=== PATIENT | male | born 1950 | race Caucasian/White ===

== ENCOUNTER 2016-12-18 15:54 | Emergency (ER) | payer OTHER, MEDICARE ==
[2016-12-18 16:07] VITALS: RESP 16
--- NOTE | 2016-12-18 16:16 | CPEKG ---
Heart Rate: 74 RR Interval: 811 P-R Interval: 176 QRSD Interval: 88 QT Interval: 368 QTC Interval: 409 P [place]: 23 QRS [place]: 21 T Wave [place]: 54 EKG Severity - NORMAL ECG - EKG Impression: SINUS RHYTHM Electronically Signed By: Tabatha Angela 18-Dec-2016 23:17:54
--- NOTE | 2016-12-18 16:32 | EDPHY ---
H & P Time Seen by Provider: 12/18/16 16:09 HPI/ROS: CHIEF COMPLAINT: Left back, left arm pain HISTORY OF PRESENT ILLNESS: Patient is a 58-year-old male with hypertension high cholesterol who presents emergency department with left-sided back pain. The patient states he developed left pain surrounding his scapula approximately 3 weeks ago. This is worse with movement. His pain is constant. For the past week he has noticed pain also extending down his left arm. Again, this is worse with movement. He denies any shortness of breath or chest pain. No cough or fever. No abdominal pain. No nausea or vomiting. No diaphoresis. No rash. No trauma or injury. REVIEW OF SYSTEMS: My complete review of systems is negative except as mentioned in the HPI. Past Medical/Surgical History: Includes high cholesterol, hypertension," metabolic syndrome", gout, bronchitis Smoking Status: Former smoker Physical Exam: Vitals noted GENERAL: Well-appearing, in no acute distress, alert. HEENT: Eyes normal to inspection, normal pharynx, no signs of dehydration. NECK: No thyromegaly, no lymphadenopathy, supple. No tenderness palpation RESPIRATORY: Clear to auscultation bilaterally, no rales, rhonchi or wheezing. CVS: Regular rate and rhythm, no rubs, murmurs, or gallops. Chest wall: No tenderness palpation. No rash ABDOMEN: Soft, nontender, nondistended, no organomegaly. BACK: Normal to inspection. No rash. The patient has mild tenderness palpation laterally to his thoracic spine. SKIN: Normal color, no rash, warm, dry. No pallor. EXTREMITIES: No pedal edema, no joint swelling. Patient's left shoulder and arm appear normal. No swelling. Neurovascular intact distally. Patient does have worsening discomfort with elevation of his humerus. This replicates his pain. NEURO/PSYCH: Alert and oriented x3, normal mood and affect, normal motor sensory exam. No obvious cranial nerve deficit. Constitutional: Initial Vital Signs Temperature (C) 36.8 C 12/18/16 16:00 Heart Rate 86 12/18/16 16:00 Respiratory Rate 16 12/18/16 16:00 Blood Pressure 157/109 H 12/18/16 16:00 O2 Sat (%) 95 12/18/16 16:00 O2 Delivery Mode Room Air Allergies/Adverse Reactions: Penicillins Allergy (Intermediate, Verified 12/18/16 16:02) Hives Home Medications: Medication Instructions Recorded Allopurinol [Allopurinol 300 MG 300 mg PO DAILY 12/18/16 (RX)] Amlodipine Besylate [Norvasc] 5 mg PO 12/18/16 Cyclobenzaprine [Flexeril] 10 mg PO TID #15 tab 12/18/16 FENOFIBRATE 160 mg PO 12/18/16 Fluticasone Hfa 220 Mcg [Flovent 1 puffs IH BID 12/18/16 220 MCG Hfa MDI (*)] Hydrocodone/APAP 5/325 [Ebro 1 - 2 tab PO Q4 #13 tab 12/18/16 5/325 (RX)] Rosuvastatin Calcium [Crestor 40mg 40 mg PO 12/18/16 (*)] Medical Decision Making ED Course/Re-evaluation: In the emergency department I discussed possible etiologies with the patient. His symptoms sound musculoskeletal. However because he has left-sided back pain radiating to his left arm he will have a cardiac workup. EKG, laboratory studies and chest x-ray were ordered. EKG shows normal sinus rhythm, normal rate, normal axis, normal intervals. There are no ST or T-wave abnormalities. EKG is normal as interpreted by me. Patient's laboratory studies showed a normal troponin. Mildly elevated white count. creatinine is 1.4. Chest x-ray: No acute disease noted. I discussed the results with the patient. I answered all her questions. He will be treated with pain medicine Flexeril for his back pain. He was given follow-up with Dr. Cohen. He has had previous procedures from Dr. Cohen. Differential Diagnosis: My differential includes but is not limited to ACS, acute VT, dissection, aneurysm, pneumonia, pneumothorax, musculoskeletal strain, disc herniation, rotator cuff injury - Data Points Laboratory Results: Laboratory Results 12/18/16 16:52 12/18/16 16:52 12/18/16 12/18/16 16:52 16:52 WBC 10.46 10^3/uL H 10^3/uL (3.80-9.50) RBC 5.51 10^6/uL 10^6/uL (4.40-6.38) Hgb 17.6 g/dL H g/dL (13.7-17.5) Hct 50.0 % % (40.0-51.0) MCV 90.7 fL fL (81.5-99.8) MCH 31.9 pg pg (27.9-34.1) MCHC 35.2 g/dL g/dL (32.4-36.7) RDW 13.6 % % (11.5-15.2) Plt Count 243 10^3/uL 10^3/uL (150-400) MPV 10.0 fL fL (8.7-11.7) Neut % (Auto) 62.0 % % (39.3-74.2) Lymph % (Auto) 24.4 % % (15.0-45.0) Armstrong % (Auto) 9.2 % % (4.5-13.0) Eos % (Auto) 2.3 % % (0.6-7.6) Baso % (Auto) 1.1 % % (0.3-1.7) Nucleat RBC Rel Count 0.0 % % (0.0-0.2) Absolute Neuts (auto) 6.49 10^3/uL 10^3/uL (1.70-6.50) Absolute Lymphs (auto) 2.55 10^3/uL 10^3/uL (1.00-3.00) Absolute Monos (auto) 0.96 10^3/uL H 10^3/uL (0.30-0.80) Absolute Eos (auto) 0.24 10^3/uL 10^3/uL (0.03-0.40) Absolute Basos (auto) 0.12 10^3/uL H 10^3/uL (0.02-0.10) Absolute Nucleated RBC 0.00 10^3/uL 10^3/uL (0-0.01) Immature Gran % 1.0 % % (0.0-1.1) Immature Gran # 0.10 10^3/uL 10^3/uL (0.00-0.10) Sodium 138 mEq/L mEq/L (134-144) Potassium 4.4 mEq/L mEq/L (3.5-5.2) Chloride 103 mEq/L mEq/L (97-110) Carbon Dioxide 21 mEq/l L mEq/l (22-31) Anion Gap 14 mEq/L mEq/L (8-16) BUN 29 mg/dL H mg/dL (7-23) Creatinine 1.4 mg/dL H mg/dL (0.7-1.3) Estimated GFR 50 Glucose 112 mg/dL H mg/dL (70-100) Calcium 10.3 mg/dL mg/dL (8.5-10.4) Troponin I < 0.012 ng/mL ng/mL (0-0.034) Departure - Departure Disposition: Home, Routine, Self-Care Clinical Impression: Acute thoracic back pain Qualifiers: Back pain laterality: left Qualified Code(s): M54.6 - Pain in thoracic spine Condition: Good Instructions: Back Pain (ED) Additional Instructions: Return with increasing pain, shortness of breath, numbness, weakness or any other concerns. Referrals: Pari Ortiz MD [Primary Care Provider] - 5-7 days, call for appt. Shanae Cohen MD [Medical Doctor] - 5-7 days, call for appt. Prescriptions: Cyclobenzaprine [Flexeril] 10 mg PO TID #15 tab Hydrocodone/APAP 5/325 [Ebro 5/325 (RX)] 1 - 2 tab PO Q4 #13 tab
[2016-12-18 17:12] LABS: ADD DIFF? NO; ADD MORPH? NO; ADD SCAN? NO; ATYPICAL LYMPHOCYTE FLAG 0 (0-99); FRAGMENT RBC FLAG 0 (0-99); HEMOGLOBIN 17.6 g/dL (13.7-17.5); LEFT SHIFT FLG 0 (0-99); LIPEMIA HEMOLYSIS FLAG 90 (0-99); MEAN CELL HEMOGLOBIN 31.9 pg (27.9-34.1); MEAN CELL HEMOGLOBIN CONCENTR. 35.2 g/dL (32.4-36.7); MEAN CELL VOLUME 90.7 fL (81.5-99.8); PLATELET CLUMPS FLAG 10 (0-99); PLATELET COUNT 243 10^3/uL (150-400); RED BLOOD CELL COUNT 5.51 10^6/uL (4.40-6.38); RED CELL DISTRIBUTION WIDTH 13.6 % (11.5-15.2)
[2016-12-18 17:21] LABS: ANION GAP 14 mEq/L (8-16); CALCIUM 10.3 mg/dL (8.5-10.4); CARBON DIOXIDE 21 mEq/l (22-31); CHLORIDE 103 mEq/L (97-110); CREATININE 1.4 mg/dL (0.7-1.3); GLOMERULAR FILTRATION RATE 50; GLUCOSE 112 mg/dL (70-100); POTASSIUM 4.4 mEq/L (3.5-5.2); SODIUM 138 mEq/L (134-144)
[2016-12-18 17:32] LABS: TROPONIN I < 0.012 ng/mL (0-0.034)
[2016-12-18 18:06] VITALS: BP 143/91; PULSE 67; TEMP 98.1; O2SAT 94
== END 2016-12-18 18:06 | disposition home or self-care (01) ==
DX: M54.6 Pain in thoracic spine (principal); I10 Essential (primary) hypertension; Z87.891 Personal history of nicotine dependence

== ENCOUNTER → 2016-12-21 | Outpatient (CLI) | payer OTHER, MEDICARE | LOC: FIMAGING 11:44 | PROVIDERS: ATTEND Orthopaedic Surgery Orthopaedic Surgery of the Spine | DX: M47.892 Other spondylosis, cervical region (principal); M46.92 Unspecified inflammatory spondylopathy, cervical region; M43.12 Spondylolisthesis, cervical region ==

== ENCOUNTER 2017-01-12 11:50 | Inpatient (IN) | payer OTHER, MEDICARE ==
--- NOTE | 2017-01-11 21:58 | GHP ---
[f rep st] PREOP HISTORY AND PHYSICAL DATE OF ADMISSION: 01/12/2017 HISTORY: The patient is a pleasant 66-year-old left-hand dominant gentleman well known to my practi theron. Approximately 12 years ago, he underwent a left L4-5 microdiskectomy through a Kian approach by myself, and has done exceedingly well. However, more recently, the patient has had a rather rapi d onset of left scapular and left upper extremity pain. There was no history of trauma. The patien t did go to the emergency room, and states he had a full cardiac workup to ensure this was not a car diac event, which it turned out to be negative. The patient does have tingling and numbness in the left upper extremity, and pain that radiates down the triceps. On a 1-10 scale, his daily pain is a n 8 and is very severe. He denies any loss of bowel or bladder control, but he does have loss of ba kunal and loss of dexterity as well as loss of strength in the left upper extremity. His symptoms b mary approximately five weeks ago. His MRI of the cervical spine showed myelomalacia at C4-5 with p rofound spinal stenosis at that level and mild stenosis at C5-6 and severe stenosis at C6-7. Due to the myelomalacia and signs of myelopathy, surgery was recommended on a fairly urgent basis. SOCIAL HISTORY: Negative for tobacco. Negative for alcohol. FAMILY HISTORY: Significant for cancer, heart disease and diabetes mellitus. PAST MEDICAL HISTORY: Hypercholesterolemia, metabolic syndrome, sleep apnea, hypertension, and gout . PAST SURGICAL HISTORY: Significant for the aforementioned left L4-5 decompression by myself. MEDICATION ALLERGIES: Penicillin. MEDICATIONS: Benazepril, amlodipine, montelukast, Crestor, allopurinol, Flovent, fenofibrate. The patient has stopped his aspirin. He does take Percocet occasionally. REVIEW OF SYSTEMS: A 10-point review is negative for any pertinent positives. PHYSICAL EXAM: GENERAL/VITAL SIGNS: Patient is 5 feet 8 inches tall and weighs 200 pounds. Blood pressure is 132/88. Patient is alert and oriented x3. NEUROLOGIC: Shows cervical range of motion diminished in extension. His strength of bilateral upper extremities is 5/5 throughout with the exc eption of the left triceps is 4/5, and sensation is diminished in the left long finger and ring fing er. He has a very positive left Spurling test. He is tender to palpation in the paraspinal cervica l muscles on the left. Gait is slightly imbalanced. IMAGING: MRI shows profound spinal stenosis and myelomalacia at C4-5, mild stenosis C5-6 and severe stenosis C6-7. IMPRESSION: 1. Myelomalacia at C4-5. 2. Myelopathy. 3. Left C7 radiculopathy. 4. Multiple levels of stenosis C4 to C7. PLAN: The patient will undergo a C4 to C7 anterior diskectomy, fusion with instrumentation, for the myelopathy and myelomalacia due to significant stenosis. Potential risks, benefits, possible compl ications have been thoroughly discussed with the patient including, but not limited to dural tear wi th CSF leak, meningitis, nerve root injury, partial or complete paralysis, breakdown or junctional b reakdown of adjacent levels, nonunion, breakage or pullout of internal fixation, dysphagia, aphonia, Rommel syndrome, injury to the vertebral arteries and the carotid arteries, as well as DVT, PE, pne umonia, stroke, heart attack, hemorrhage, blindness, and . The patient will be n.p.o. after mi dnight tonight. All of his questions were answered thoroughly. I expect a 1 to 2-night hospital [facility] for this patient. /[id number]/MODL
[~2017-01-12 11:50] MED LIST: VANCOMYCIN 1.25 GM in D5W 250 ML IV ONE
[2017-01-12] MEDS ORDERED: LR 1,000 ML IV ONE (12:07)
[2017-01-12] MEDS ORDERED: LIDOCAINE 1% 5 ML SDV ID PRN (12:07)
[2017-01-12] MEDS ORDERED: THROMBIN (BOVINE) 20,000 UNIT VIAL TP ONE (12:15)
[2017-01-12] MEDS ORDERED: AVITENE POWDER 1 GM JAR TP ONE (12:15)
[2017-01-12] MEDS ORDERED: BACITRACIN 50,000 UNITS/10 ML SYR IRR ONE ×2 (12:16→14:09)
[2017-01-12] MEDS ORDERED: LIDOCAINE 1% 2 ML INJ ONE (12:20)
[2017-01-12 13:02] LABS: INR 0.99 (0.83-1.16)
[2017-01-12 13:03] LABS: APTT 26.2 SEC (23.0-38.0)
[2017-01-12] MEDS ORDERED: PROPOFOL/EMULSION 500 MG/50 ML BOTTLE IV ONE ×4 (13:33→17:54)
[2017-01-12] MEDS ORDERED: fentaNYL 250 MCG/5 ML INJ ONE ×2 (13:33→15:11)
[2017-01-12] MEDS ORDERED: DEXAMETHASONE 4 MG/ML VIAL ONE ×2 (13:35→15:55)
[2017-01-12] MEDS ORDERED: SUCCINYLCHOLINE CHLORIDE*ANESTHESIA ONLY*200 MG/10 ML SYR IVP ONE (13:35)
[2017-01-12] MEDS ORDERED: ROCURONIUM 50 MG/5 ML VIAL ONE (13:35)
[2017-01-12] MEDS ORDERED: MIDAZOLAM 2 MG/2 ML VIAL ONE (14:00)
[2017-01-12] MEDS ORDERED: PETROLAT,WHT/MIN OIL/SOD CHL 3.5 GM OPHT.OINT ONE (15:22)
[2017-01-12] MEDS ORDERED: fentaNYL 100 MCG/2 ML INJ ONE ×3 (16:34→20:27)
[2017-01-12] MEDS ORDERED: ONDANSETRON 4 MG/2 ML VIAL ONE ×3 (19:09→20:28)
[2017-01-12] MEDS ORDERED: ONDANSETRON DISINTEGRATING 4 MG TAB PO PRN (19:22)
[2017-01-12] MEDS ORDERED: BISACODYL 10 MG SUPP PR PRN (19:22)
[2017-01-12] MEDS ORDERED: MAGNESIUM HYDROXIDE 30 ML UDCUP PO PRN (19:22)
[2017-01-12] MEDS ORDERED: TEMAZEPAM 15 MG CAP PO PRN (19:22)
[2017-01-12] MEDS ORDERED: ACETAMINOPHEN 325 MG TAB PO PRN (19:22)
[2017-01-12] MEDS ORDERED: POLYETHYLENE GLYCOL 3350 17 GM PKT PO PRN (19:22)
[2017-01-12] MEDS ORDERED: diphenhydrAMINE 25 MG CAP PO PRN ×2 (19:22)
[2017-01-12] MEDS ORDERED: PROCHLORPERAZINE MALEATE 10 MG TAB PO PRN (19:22)
[2017-01-12] MEDS ORDERED: HYDROCODONE/APAP 10/325 TAB PO PRN (19:22)
[2017-01-12] MEDS ORDERED: DIAZEPAM 10 MG/2 ML SYR IVP PRN (19:22)
[2017-01-12] MEDS ORDERED: LACTULOSE 20 GM/30 ML UDCUP PO PRN (19:22)
[2017-01-12] MEDS ORDERED: ONDANSETRON 4 MG/2 ML VIAL IVP PRN (19:22)
--- NOTE | 2017-01-12 19:22 | POSTOPPROG ---
Post Op Note Date of Operation: 01/12/17 Surgeon: Shanae Cohen Energy Auditor: Florencia Rodriges SA Anesthesiologist: Aminta Christianson MD Anesthesia: GET(General Endotracheal) Pre-op Diagnosis: Myelopathy, stenosis C4-7, Left C7 radiculopathy Post-op Diagnosis: same. Indication: Left arm pain, myelopathy Procedure: C4-7 ACDF/I Findings: Profpound stenosis C4-5 and moderate C6-7, mild C5-6. Inf/Abcess present in the surg proc area at time of surgery?: No Depth: Deep Incisional (Fascial) EBL: 100 cc Complications: None. No changes in neuro monitoring.
[2017-01-12] MEDS ORDERED: D5W 1/2 NS W/ 20 KCl/L 1,000 ML IV SCH (19:30)
[2017-01-12] MEDS ORDERED: LABETALOL HCL 50 MG/10 ML SYR ONE (19:44)
[2017-01-12] MEDS ORDERED: FLUTICASONE HFA 220 MCG MDI IH SCH (21:00)
[2017-01-12] MEDS: FLUTICASONE HFA 110 MCG MDI IH SCH (22:00)
[2017-01-12] MEDS: morphINE SR 15 MG TAB PO SCH (22:22)
[2017-01-12] MEDS: SENNOSIDES/DOCUSATE SODIUM TAB PO SCH (22:22)
[2017-01-12] MEDS: OXYCODONE/APAP 5/325 TAB PO PRN (23:32)
[2017-01-13] MEDS: DIAZEPAM 5 MG TAB PO PRN ×3 (01:22→18:01)
[2017-01-13] MEDS ORDERED: VANCOMYCIN 1.5 GM in D5W 250 ML IV SCH (01:45)
[2017-01-13] MEDS: OXYCODONE/APAP 5/325 TAB PO PRN ×3 (03:42→18:02)
[2017-01-13] MEDS: morphINE SR 15 MG TAB PO SCH ×2 (08:24→20:05)
[2017-01-13] MEDS: FLUTICASONE HFA 110 MCG MDI IH SCH ×2 (08:52→22:22)
[2017-01-13] MEDS: ROSUVASTATIN CALCIUM 10 MG TAB PO SCH (09:36)
[2017-01-13] MEDS: FENOFIBRATE 48 MG TAB PO SCH (09:38)
[2017-01-13] MEDS: BENAZEPRIL HCL 10 MG TAB PO SCH (09:39)
[2017-01-13] MEDS: SENNOSIDES/DOCUSATE SODIUM TAB PO SCH ×2 (09:39→20:05)
[2017-01-13] MEDS: amLODIPine BESYLATE 5 MG TAB PO SCH (09:40)
[2017-01-13] MEDS: MONTELUKAST SODIUM 10 MG TAB PO SCH (09:40)
[2017-01-13] MEDS: ALLOPURINOL 300 MG TAB PO SCH (09:41)
[2017-01-13] MEDS: HYDROmorphONE/DILAUDID 1 MG/ML SYR IVP PRN (15:08)
--- NOTE | 2017-01-13 17:45 | SOAPPROG ---
SOAP Progress Note Assessment/Plan: Assessment: s/p C4-7 ACDF/I for severe stenosis, and myelopathy. Pt having significant post op pain and some dysphagia and has not been able to urinate yet. Plan: Cont pain management. I encouraged pt to take valium as needed. Cont PT and OT (shower in a.m with collar off) If no void, pt will need mccord and f/u appt with Dr. Lemus (pts urologist). 01/13/17 17:41 Subjective: Pt complains of severe pain episode with eating chicken salad/and dyspagia. Unable to urinate. Straight cath'd 3x so far. Objective: Vital Signs Temp Pulse Resp BP Pulse Ox 36.9 C 82 16 125/84 H 97 01/13/17 15:36 01/13/17 15:36 01/13/17 15:36 01/13/17 15:36 01/13/17 15:36 01/12/17 01/13/17 01/14/17 05:59 05:59 05:59 Intake Total 3200 250 Output Total 2100 1250 Balance 1100 -1000 PT 13.0 SEC (12.0-15.0) 01/12/17 12:30 INR 0.99 (0.83-1.16) 01/12/17 12:30 Anterior c-spine with swelling, but skin creases still visible. Trachea midline. BUE motor 5/5. NVI. ICD10 Worksheet Patient Problems: Problems Problem Status Onset Myelopathy Acute - ICD10 Problem Qualifiers (1) Myelopathy
[2017-01-14] MEDS: OXYCODONE/APAP 5/325 TAB PO PRN ×4 (01:31→21:07)
[2017-01-14] MEDS: DIAZEPAM 5 MG TAB PO PRN ×3 (01:32→15:57)
[2017-01-14] MEDS: SENNOSIDES/DOCUSATE SODIUM TAB PO SCH ×2 (08:11→21:06)
[2017-01-14] MEDS: ROSUVASTATIN CALCIUM 10 MG TAB PO SCH (08:12)
[2017-01-14] MEDS: morphINE SR 15 MG TAB PO SCH ×2 (08:13→21:06)
[2017-01-14] MEDS: MONTELUKAST SODIUM 10 MG TAB PO SCH (08:13)
[2017-01-14] MEDS: ALLOPURINOL 300 MG TAB PO SCH (08:13)
[2017-01-14] MEDS: amLODIPine BESYLATE 5 MG TAB PO SCH (08:14)
[2017-01-14] MEDS: BENAZEPRIL HCL 10 MG TAB PO SCH (08:14)
[2017-01-14] MEDS: FENOFIBRATE 48 MG TAB PO SCH (08:15)
[2017-01-14] MEDS: FLUTICASONE HFA 110 MCG MDI IH SCH ×3 (09:12→22:14)
[2017-01-14] MEDS: ALBUTEROL 60 PUFFS/8 GM MDI IH PRN (10:04)
[2017-01-14] MEDS: HYDROmorphONE/DILAUDID 1 MG/ML SYR IVP PRN ×2 (12:05→19:24)
--- NOTE | 2017-01-14 12:24 | CPEKG ---
Heart Rate: 89 RR Interval: 674 P-R Interval: 148 QRSD Interval: 90 QT Interval: 344 QTC Interval: 419 P [place]: 54 QRS [place]: 61 T Wave [place]: 67 EKG Severity - NORMAL ECG - EKG Impression: SINUS RHYTHM Electronically Signed By: Tae Bourne 14-Jan-2017 18:36:45
[2017-01-14 13:27] LABS: CREATINE KINASE-MB FRACTION 1.36 ng/mL (0-3.19); TROPONIN I < 0.012 ng/mL (0-0.034)
--- NOTE | 2017-01-14 15:35 | SOAPPROG ---
SOAP Progress Note Assessment/Plan: Assessment: s/p C4-7 ACDF/I for severe stenosis, and myelopathy. Pt having significant post op pain and some dysphagia and has not been able to urinate yet. Plan: Cont pain management. I encouraged pt to take valium as needed. Cont PT and OT (shower in a.m with collar off) If no void, pt will need mccord and f/u appt with Dr. Lemus (pts urologist). 01/13/17 17:41 01/14/17 15:32 post op day 2, s/p C4-7 ACDF/I for cervical myelopathy and severe LUE radiculopathy. Pt had episode of chest pressure, SOB, dysphagia today. Had cardiac protocol w/u. Negative so far per hospitalist. Plan: cont close airway observation, telemetry, and pain control. Subjective: Pt describes episode of diaphoresis, SOB, chest pressure, dysphagia today. Seen again by speech path. Objective: Vital Signs Temp Pulse Resp BP Pulse Ox 37.0 C 97 18 127/78 H 96 01/14/17 11:05 01/14/17 11:05 01/14/17 11:05 01/14/17 11:05 01/14/17 11:05 01/13/17 01/14/17 01/15/17 05:59 05:59 05:59 Intake Total 3200 750 Output Total 2100 3050 Balance 1100 -2300 PT 13.0 SEC (12.0-15.0) 01/12/17 12:30 INR 0.99 (0.83-1.16) 01/12/17 12:30 BUE and BLE motor 5/5. NVI. Light touch in tact. Wound clean and dry. Pulm and cardiac per hospitalist. ICD10 Worksheet Patient Problems: Problems Problem Status Onset Myelopathy Acute - ICD10 Problem Qualifiers (1) Myelopathy
[2017-01-14] MEDS: IPRATROPIUM/ALBUTEROL 3 ML DEYVIAL IH SCH ×3 (18:11→21:16)
--- NOTE | 2017-01-14 18:44 | GCON ---
[f rep st] CONSULTATION REFERRING PHYSICIAN: Dr. Jesu MD REASON FOR CONSULTATION: Evaluation for increased coughing, chest pain, with shortness of breath. HISTORY OF PRESENT ILLNESS: The patient is a 66-year-old gentleman who has a past medical history of high cholesterol, metabolic syndrome, hypertension, sleep apnea, and gout who is postop day #2 for a C4-7 ACDF/I for treatment of left arm pain and myelopathy. The hospitalist team was asked to evaluate the patient because he had an episode of chest tightness with shortness of breath. In talking with the patient, he describes that his chest became tight, but he felt this was more bronchial. He has seen Dr. Jordan in the past for chronic bronchitis, and has been treated with Flovent b.i.d.and ProAir. He describes falling asleep. All of a sudden, he had increased pain in his shoulder and triceps, which woke him up, and then he started having complaints of chest tightness with increased mucus production. He had a fever as well as chills, and had increased sweating. He had no nausea, no vomiting, no radiation of pain. He has been having more trouble using his ProAir and taking deep breaths because of having a collar on his neck area. He uses this at home for his bronchial symptoms. During my interview, he denies any further episodes of shortness of breath, chest pain. His pain is well controlled with IV Dilaudid. PAST MEDICAL HISTORY: 1. Hypercholesterolemia. 2. Sleep apnea. 3. Hypertension. 4. Gout. 5. Metabolic syndrome. PAST SURGICAL HISTORY: 1. Laminectomy approximately [address] Cohen. 2. Green laser therapy for his prostate with Dr. Lemus. 3. Recent cervical spine surgery. SOCIAL HISTORY: He does not smoke. He does not drink alcohol. He is currently not in a relationship. He has no children. He works in the [employer] business. FAMILY HISTORY: His father was murdered at age 38, and his mom from complications of aspiration at age 91. ALLERGIES: Penicillin causes hives. HOME MEDICATIONS: Include ProAir 1-2 puffs q.4 hours p.r.n., Flovent 1 puff inhalation b.i.d., Neurontin 300 mg p.o. b.i.d., Percocet 1 tab q.5 hours p.r.n. , Norvasc 5 mg daily, Crestor 5 mg daily, Fenofibrate 54 mg daily, allopurinol 300 mg daily, Singulair 10 mg daily, and Lotensin 10 mg daily. REVIEW OF SYSTEMS: A 10-point review of system was performed and was negative other than pertinent positives in the HPI and past medical history. PHYSICAL EXAM: GENERAL: The patient is a 66-year-old male, who does not appear to be in any type of acute distress. VITAL SIGNS: Blood pressure is 127 /78, heart rate is 97, respiratory rate is 18, O2 sats on room air 96%, temperature is 37 degrees Celsius. EYES: Pupils are equal and reactive. EOMs are intact. ENT: He has normal ears, hearing is intact. Normal lips and teeth. Oral airways intact. NECK: He has a soft cervical collar in place. CARDIOVASCULAR: He is in a regular rate and rhythm. No murmurs, rubs, or gallops noted, 2+ pedal pulses. CHEST/LUNGS: Normal respiratory effort. Clear without wheezing or rales. Diminished bibasilar. ABDOMEN: Large and round, nontender. SKIN: Without rash. It is also warm and dry. MUSCULOSKELETAL: Not evaluated. He appears to have overall good motor strength. PSYCHIATRIC: He is alert and oriented. Normal mood and affect. Normal judgment, insight, and memory. DATA REVIEWED: 1. Cardiac enzymes were checked. CPK is 136, CK-MB is 1.36 troponin is less than 0.012. 2. EKG was performed, which I evaluated, which shows a sinus rhythm. 3. Chest x-ray was performed, which showed findings consistent with airway disease. ASSESSMENT/PLAN: 1. Likely acute on chronic bronchitis. He was having difficulty using his ProAir and getting a deep breath with this. Will order him DuoNeb. During my evaluation, he is not hypoxic and not having any type of tachycardia. I suspect he has some congestion postop from the surgery. 2. Chest discomfort and difficulty with taking deep breaths. Troponin is negative. EKG shows nothing acute. Will place him on the equipment monitor phototypesetting. Serial troponin will be done. A CTA can be considered if he becomes hypoxic and/ or tachycardic. 3. Swallowing concerns. He was seen and evaluated by the speech therapist. He is on a dysphagia diet and recommended to eat small meals at a time. 4. Hypertension. Blood pressure is well controlled. 5. Hypercholesterolemia. Statin has been resumed. 6. Gout, on allopurinol. 7. Postop day #2 for recent cervical surgery. Overall, doing well. 8. Deep vein thrombosis prophylaxis per surgical team. Thank you for this consult. The hospitalist team will continue to follow along with the patient during his stay. /[id number]/MODL MTDD
[2017-01-14] MEDS: GABAPENTIN 300 MG CAP PO SCH (21:07)
[2017-01-15] MEDS: DIAZEPAM 5 MG TAB PO PRN ×3 (00:42→21:47)
[2017-01-15] MEDS: OXYCODONE/APAP 5/325 TAB PO PRN ×4 (03:00→23:22)
[2017-01-15] MEDS: HYDROmorphONE/DILAUDID 1 MG/ML SYR IVP PRN ×2 (03:02→10:22)
--- NOTE | 2017-01-15 04:44 | GOP ---
[f rep st] OPERATIVE REPORT DATE OF OPERATION: 01/12/2017 SURGEON: Shanae aNils MD NEUROSURGEON: Shanae Cohen MD. LINE INSPECTOR: Garrett Rodriges SA. ANESTHESIA: General endotracheal intubation. ANESTHESIOLOGIST: Dr. Jessica Christianson. PREOPERATIVE DIAGNOSIS: 1. Profound spinal stenosis C4-5, mild at C5-6, and moderate at C6-7. 2. Cervical myelopathy. 3. Left C7 radiculopathy with motor weakness. 4. Cervical myelomalacia C4-5. POSTOPERATIVE DIAGNOSIS: 1. Profound spinal stenosis C4-5, mild at C5-6, and moderate at C6-7. 2. Cervical myelopathy. 3. Left C7 radiculopathy with motor weakness. 4. Cervical myelomalacia C4-5. PROCEDURE PERFORMED: C4-5, C5-6, C6-7 anterior diskectomy, decompression, fusion with autograft and PEEK cages, and instrumentation. FINDINGS: Profound spinal stenosis C4-5, mild at C5-6, and moderate at C6-7 centrally, and foramina l stenosis at each level. There were also large anterior osteophytes C4-5, C6-7, and severe degener ative disk disease C4-5 and C6-7 and mild at C5-6. ESTIMATED BLOOD LOSS: Approximately 100 to 150 cc. INDICATIONS: Damian is a pleasant 66-year-old gentleman, well known to my practice. He has had a 3 t o 4-week history of severe neck pain and left upper extremity pain, tingling, numbness, loss of maldonado nce, and loss of dexterity. His symptoms began suddenly without preceding trauma. He states he was seen in the emergency room and a myocardial infarction was ruled out. On MRI he was found to have very profound spinal stenosis at C4-5 and spinal myelomalacia within the spinal cord at that level, in addition to stenosis at C5-6 and C6-7, and degenerative disk disease at all 3 levels. Surgery wa s recommended due to the myelopathy and the myelomalacia. No guarantees were given in regard to grace gical outcome. Potential risks, benefits, and possible complications have been thoroughly discussed including, but not limited to, dural tear with CSF leak, meningitis, nerve root injury, partial or complete paralysis, infection, Rommel syndrome, dysphagia, aphonia, nonunion, breakage or pullout of internal fixation, DVT, PE, pneumonia, stroke, heart attack, hemorrhage, blindness, and . DESCRIPTION OF PROCEDURE: After obtaining both written and verbal consent from the patient, he was brought to the operating room, where he underwent a general endotracheal intubation. Patient receiv ed IV antibiotics. Ignacio catheter was placed. Patient was positioned with his head and neck on the Wood headrest in mild extension. Intraoperative neuromonitoring including somatosensory-evoked potentials, motor-evoked potentials, and EMGs, including recurrent laryngeal nerve. EMGs were set up and performed. A lateral fluoroscopic x-ray was obtained of the cervical spine for localization. The cervical spine was then prepped and draped in the normal sterile fashion. A time out was perf ormed with the operating room team confirming patient's name, date of , planned surgical proced ure including levels, antibiotics given, and allergies to medications. After a sterile prep and drape, a left-sided paramedian longitudinal incision was made along the med ial border of the sternocleidomastoid muscle. The incision was brought down through skin subcutaneo us tissues and to the overlying platysma which were sharply incised with Bovie cautery. The deep ce rvical fascia was incised along the medial border of the sternocleidomastoid muscle. The carotid sh eath and its contents were identified and avoided. Dissection was carried out medial to those struc tures. The trachea and esophagus were gently retracted toward the midline. The pretracheal and pre vertebral fascia were bluntly dissected. 3 bent spinal needles were placed at disk spaces based on the anatomic landmarks and a lateral x-ray confirmed that these were indeed at the correct levels wh ich were C4-5, C5-6, and C6-7. The bent spinal needles were removed. The operating microscope was brought in for further visualization. The longus coli muscles were elevated using Bovie cautery. T he anterior longitudinal ligament was taken down as well using Bovie cautery from C4-C7. A Leonard p in was then placed at C4 and 1 at C5. The disk space was severely degenerative. Very minimal distr action was placed upon the Leonard pin set. Under the operating microscope, a 15 blade knife was use d to create an annulotomy at the disk and a pituitary rongeur was used to remove the anterior osteop hyte. As mentioned, the disk was severely degenerative. It was opened up using a 2-0 curved curett e and a pituitary rongeur. The posterior longitudinal ligament was severely hypertrophied and the patient had exceedingly profound spinal stenosis with the posterior disk as well as posteri or longitudinal ligaments creating an indentation upon the spinal cord. This was very slowly and gr adually, meticulously decompressed and all of the soft tissue structures were removed from causing a ny pressure on the spinal cord. Bilateral foraminotomies were also performed due to severe bilatera l foraminal stenosis. A 5 mm round and barrel shaped bur were then used to create parallel endplate s. Local bone graft was saved for the arthrodesis. Once the spinal cord was fully decompressed and the foramina were decompressed, trials were utilized to measure the space. This was from the Spina l Elements Sapphire Plate and Screw System. The most appropriate trial was a 9 mm lordotic trial. Therefore, a 16 x 13 x 9 mm lordosed Ti-Romero Crystal PEEK cage was prepared using autogenous bone gr aft as well as demineralized bone matrix. It was then tamped into position at C4-5. A micro nerve hook was used to palpate posterior to the bone graft and this ensured that there was no compressive pathology on the spinal cord. There were no changes in spinal cord monitoring. Then, the C5-6 level was addressed. This disk space was mildly degenerative. It was removed in the exact same fashion back to the posterior longitudinal ligament. This level showed mild plus spinal stenosis centrally and within the neural foramen. The entire posterior longitudinal ligament was c ompletely removed and foraminotomies were performed. Again, local autogenous bone graft was saved a nd parallel endplates were made using a 5 mm barrel shaped bur. The best fitting trial was a 9 mm t rial and, therefore, a 16 x 13 x 9 mm lordosed Ti-Romero Crystal PEEK cage was prepared using autogeno us bone graft and demineralized bone matrix. It was tamped into position and recessed about 1 mm. There was excellent contact on the vertebral endplates. Again, there were no changes in spinal cord monitoring. Then, the C6-7 level was addressed. This level showed severe degenerative disk disease with near rony ne-on-bone contact and a large anterior osteophyte that was removed with a 5 mm round bur. The enti re remnant of the disk was removed back to the posterior longitudinal ligament which again was hyper trophied and causing moderate central stenosis and severe bilateral foraminal stenosis. There was a lso a left-sided C6-7 disk herniation that was removed with a micropituitary. This space measured 8 mm and, at this level, a 14 x 11 x 8 mm lordosed Crystal PEEK Ti-Romero cage was tamped into position . There were no changes in spinal cord monitoring. A 5 mm round bur was then used to contour the a nterior aspect of the cervical spine to better accept a plate. Then, a Sapphire plate by [employer] measuring 51 mm in length was chosen and contoured into cervical lordosis mildly. It was plac ed under direct visualization using 4 mm x 14 mm self-drilling screws at all levels except for the l eft C4 was a 4.0 x 14 self-tapping screw. All screws were tightened down and torqued per the manugrace sandovalr's recommendation and had excellent purchase. There were no changes in spinal cord monitoring again. An AP and a lateral fluoroscopic x-ray were obtained using the intraoperative fluoroscope. This showed good position of internal fixation including PEEK cages from C4-C7. The wound was thor oughly explored and hemostasis was completely obtained. There was no need for a drain as the wound was completely dry prior to closure. The trachea and the esophagus were left intact in excellent co ndition as well as the carotid sheath and its contents and the spinal cord. The wound was closed us ing a 2-0 on dyed Vicryl in an interrupted fashion loosely in the platysma followed by a 4-0 Prolene in the subcuticular layer. Steri-Strips were applied. Sterile dressing was placed. Soft cervical collar was placed. Ignacio catheter was removed. Patient was extubated in the operating room, broug ht to the recovery room in satisfactory condition. COMPLICATIONS: None. IMPLANTS: Spinal Elements Sapphire plate and Crystal PEEK Ti-Romero cages. COMPLICATIONS: No changes in spinal cord monitoring. POSTOPERATIVE PLAN: Close neurologic observation, close airway observation, PT/OT and speech pathol ogy, as well as pain control. /[id number]/MODL
[2017-01-15 05:21] LABS: % IMMATURE GRANULYOCYTES 1.1 % (0.0-1.1); ABSOLUTE IMMATURE GRANULOCYTES 0.15 10^3/uL (0.00-0.10); ADD DIFF? NO; ADD MORPH? NO; ADD SCAN? NO; ATYPICAL LYMPHOCYTE FLAG 0 (0-99); FRAGMENT RBC FLAG 0 (0-99); HEMATOCRIT 45.6 % (40.0-51.0); HEMOGLOBIN 15.5 g/dL (13.7-17.5); LEFT SHIFT FLG 10 (0-99); LIPEMIA HEMOLYSIS FLAG 90 (0-99); MEAN CELL HEMOGLOBIN 31.9 pg (27.9-34.1); MEAN CELL VOLUME 93.8 fL (81.5-99.8); MEAN PLATELET VOLUME 10.4 fL (8.7-11.7); PLATELET CLUMPS FLAG 10 (0-99); PLATELET COUNT 193 10^3/uL (150-400); RED BLOOD CELL COUNT 4.86 10^6/uL (4.40-6.38); RED CELL DISTRIBUTION WIDTH 13.3 % (11.5-15.2)
[2017-01-15 05:57] LABS: ANION GAP 12 mEq/L (8-16); CALCIUM 10.1 mg/dL (8.5-10.4); CARBON DIOXIDE 21 mEq/l (22-31); CHLORIDE 103 mEq/L (97-110); CREATININE 1.7 mg/dL (0.7-1.3); GLOMERULAR FILTRATION RATE 40; GLUCOSE 136 mg/dL (70-100); POTASSIUM 4.4 mEq/L (3.5-5.2); SODIUM 136 mEq/L (134-144)
[2017-01-15] MEDS: IPRATROPIUM/ALBUTEROL 3 ML DEYVIAL IH SCH ×4 (08:32→21:54)
[2017-01-15] MEDS: ALLOPURINOL 300 MG TAB PO SCH (08:38)
[2017-01-15] MEDS: ROSUVASTATIN CALCIUM 10 MG TAB PO SCH (08:39)
[2017-01-15] MEDS: morphINE SR 15 MG TAB PO SCH ×2 (08:39→21:48)
[2017-01-15] MEDS: FENOFIBRATE 48 MG TAB PO SCH (08:39)
[2017-01-15] MEDS: MONTELUKAST SODIUM 10 MG TAB PO SCH (08:39)
[2017-01-15] MEDS: GABAPENTIN 300 MG CAP PO SCH ×3 (08:39→21:49)
[2017-01-15] MEDS: SENNOSIDES/DOCUSATE SODIUM TAB PO SCH ×2 (08:40→21:48)
[2017-01-15] MEDS: BENAZEPRIL HCL 10 MG TAB PO SCH (08:50)
[2017-01-15] MEDS: amLODIPine BESYLATE 5 MG TAB PO SCH (08:50)
[2017-01-15] MEDS: ALBUTEROL 60 PUFFS/8 GM MDI IH PRN (10:29)
[2017-01-15] MEDS: FLUTICASONE HFA 110 MCG MDI IH SCH ×2 (11:07→21:54)
[2017-01-15] MEDS: TAMSULOSIN HCL 0.4 MG CAP PO SCH (12:56)
--- NOTE | 2017-01-15 13:11 | HOSPPROG ---
Hospitalist Progress Note Assessment/Plan: 66 y/o male pod #3 cervical fusion #resolved chest pain with negative troponin suspect bronchitis -cont nebs -monitor off of abx #NIYAH likely multifactorial due to urinary retention/hypotension/nsaid use -monitor pvr and consider dc with mccord if continues to have problems with voiding -start flomax -hold bp meds for now -avoid nsaids #urinary retention with h/o BPH s/p green light laser turp -see above #Htn now with relative hypotension -hold norvasc/lisinopril #H/o Gout Dispo: may dc per Dr. Carrera if able to void. would recommending holding lisinopril on dc and arrange outpt followup with pcp to monitor renal function. If he is unable to void would recommend dc with mccord and urology followup. He has seen Dr. Lemus in the past Subjective: no chest pain. reports new problems with urinary retention. no fever or chills Objective: Vital Signs Temp Pulse Resp BP Pulse Ox 37.0 C 121 H 18 103/67 93 01/15/17 11:37 01/15/17 11:37 01/15/17 11:37 01/15/17 11:37 01/15/17 11:37 Laboratory Results 01/15/17 04:57 01/15/17 04:57 01/14/17 01/15/17 01/16/17 05:59 05:59 05:59 Intake Total 750 500 500 Output Total 3050 600 1300 Balance -2300 -100 -800 PT 13.0 SEC (12.0-15.0) 01/12/17 12:30 INR 0.99 (0.83-1.16) 01/12/17 12:30 Laboratory Tests 01/14/17 01/14/17 01/15/17 12:30 18:21 00:33 Troponin I < 0.012 < 0.012 < 0.012 - Physical Exam Constitutional: no apparent distress, appears nourished, not in pain Ears, Nose, Mouth, Throat: moist mucous membranes, hearing normal, ears appear normal, no oral mucosal ulcers Cardiovascular: regular rate and rhythym, no murmur, rub, or gallop Respiratory: no respiratory distress, no rales or rhonchi, clear to auscultation Gastrointestinal: normoactive bowel sounds, soft, non-tender abdomen, no palpable masses Genitourinary: no bladder fullness Skin: no rashes or abrasions, no fluctuance, no induration ICD10 Worksheet Patient Problems: Problems Problem Status Onset Myelopathy Acute
--- NOTE | 2017-01-15 13:57 | SOAPPROG ---
SOAP Progress Note Assessment/Plan: Assessment: s/p C4-7 ACDF/I for severe stenosis, and myelopathy. Pt having significant post op pain and some dysphagia and has not been able to urinate yet. Plan: Cont pain management. I encouraged pt to take valium as needed. Cont PT and OT (shower in a.m with collar off) If no void, pt will need mccord and f/u appt with Dr. Lemus (pts urologist). 01/13/17 17:41 01/14/17 15:32 post op day 2, s/p C4-7 ACDF/I for cervical myelopathy and severe LUE radiculopathy. Pt had episode of chest pressure, SOB, dysphagia today. Had cardiac protocol w/u. Negative so far per hospitalist. Plan: cont close airway observation, telemetry, and pain control. 01/15/17 13:53 post op day 3, s/p C4-7 ACDF/I. Pain still problematic for pt. Will start decadron. Will increase neurontin. Bronchitis per hospitalist. Bladder retention. Will need mccord in next 2-3 hrs if unable to urinate and f/ u with Dr. Lemus. Subjective: Pt complains of significant pain. Objective: Vital Signs Temp Pulse Resp BP Pulse Ox 37.0 C 121 H 18 103/67 93 01/15/17 11:37 01/15/17 11:37 01/15/17 11:37 01/15/17 11:37 01/15/17 11:37 Laboratory Results 01/15/17 04:57 01/15/17 04:57 01/14/17 01/15/17 01/16/17 05:59 05:59 05:59 Intake Total 750 500 500 Output Total 3050 600 1300 Balance -2300 -100 -800 PT 13.0 SEC (12.0-15.0) 01/12/17 12:30 INR 0.99 (0.83-1.16) 01/12/17 12:30 BUE motor 5/5. Anterior cervical wound clean. Minimal swelling. No Horners ICD10 Worksheet Patient Problems: Problems Problem Status Onset Myelopathy Acute - ICD10 Problem Qualifiers (1) Myelopathy
[2017-01-15] MEDS: DEXAMETHASONE 4 MG TAB PO SCH ×2 (16:36→23:22)
[2017-01-15] MEDS ORDERED: NS 1,000 ML IV ONE (17:50)
--- NOTE | 2017-01-15 23:57 | HOSPPROG ---
Hospitalist Progress Note Assessment/Plan: XC note: Alerted by RN that pt persistently tachycardic with HR 105-115 s/p 1 L NS. Reviewed chart. Pt is POD #3 from cervical fusion, medicine consulted yesterday due to complaints of chest discomfort and difficulty breathing thought to be secondary to bronchitis. He is not on pharmacologic DVT prophylaxis. His Cr is elevated at 1.7, +h/o urinary retention. Ignacio now in place. Currently he is comfortable, but requiring 4 LPM O2 on CPAP (?CONNER), was on room air earlier today and does not use O2 at home. Due to persistent tachycardia and increased O2 requirement in this post-op pt, will pursue PE w/u -D dimer obtained first as pt cannot have CTA with repeat Cr 1.8 -Elevated d dimer, LE duplex neg for DVT -Will obtain V/Q scan in am -Defer empiric anticoagulation for now as pt asymptomatic and HR has improved through the night, down to 80 at this time Objective: Vital Signs Temp Pulse Resp BP Pulse Ox 36.7 C 105 H 14 108/66 95 01/15/17 23:20 01/15/17 23:20 01/15/17 23:20 01/15/17 23:20 01/15/17 23:20 Laboratory Results 01/15/17 04:57 01/15/17 04:57 01/14/17 01/15/17 01/16/17 05:59 05:59 05:59 Intake Total 457 753 7076 Output Total 3050 600 1800 Balance -2300 -100 200 PT 13.0 SEC (12.0-15.0) 01/12/17 12:30 INR 0.99 (0.83-1.16) 01/12/17 12:30 ICD10 Worksheet Patient Problems: Problems Problem Status Onset Myelopathy Acute
[2017-01-16 00:38] LABS: ANION GAP 13 mEq/L (8-16); CALCIUM 9.9 mg/dL (8.5-10.4); CARBON DIOXIDE 20 mEq/l (22-31); CHLORIDE 102 mEq/L (97-110); CREATININE 1.8 mg/dL (0.7-1.3); GLOMERULAR FILTRATION RATE 38; GLUCOSE 217 mg/dL (70-100); POTASSIUM 4.6 mEq/L (3.5-5.2); SODIUM 135 mEq/L (134-144)
[2017-01-16] MEDS: OXYCODONE/APAP 5/325 TAB PO PRN ×3 (04:57→13:57)
[2017-01-16] MEDS: DEXAMETHASONE 4 MG TAB PO SCH ×2 (04:58→11:54)
[2017-01-16] MEDS: IPRATROPIUM/ALBUTEROL 3 ML DEYVIAL IH SCH ×4 (05:50→21:19)
[2017-01-16 05:52] LABS: ANION GAP 11 mEq/L (8-16); CALCIUM 10.1 mg/dL (8.5-10.4); CARBON DIOXIDE 21 mEq/l (22-31); CHLORIDE 103 mEq/L (97-110); CREATININE 1.7 mg/dL (0.7-1.3); GLOMERULAR FILTRATION RATE 40; GLUCOSE 152 mg/dL (70-100); SODIUM 135 mEq/L (134-144)
[2017-01-16] MEDS: ALLOPURINOL 300 MG TAB PO SCH (08:38)
[2017-01-16] MEDS: SENNOSIDES/DOCUSATE SODIUM TAB PO SCH ×2 (08:39→22:07)
[2017-01-16] MEDS: MONTELUKAST SODIUM 10 MG TAB PO SCH (08:39)
[2017-01-16] MEDS: FENOFIBRATE 48 MG TAB PO SCH (08:39)
[2017-01-16] MEDS: ROSUVASTATIN CALCIUM 10 MG TAB PO SCH (08:39)
[2017-01-16] MEDS: GABAPENTIN 300 MG CAP PO SCH ×3 (08:39→22:09)
[2017-01-16] MEDS: morphINE SR 15 MG TAB PO SCH ×2 (08:39→22:07)
[2017-01-16] MEDS: TAMSULOSIN HCL 0.4 MG CAP PO SCH (08:40)
--- NOTE | 2017-01-16 09:29 | HOSPPROG ---
Hospitalist Progress Note Assessment/Plan: DIAGNOSES: 66 y/o male pod #3 cervical fusion #resolved chest pain with negative troponin; diff diagnosis includes bronchitis and atelectasis, PE; no sign of cardiac issues at present -cont nebs -VQ ordered last night is pending; will check that when finished and review w pt #NIYAH (baseline creat 1.4, is 1.7 now) -multifactorial due to urinary retention/hypotension/nsaid use -monitor pvr and consider dc with mccord if continues to have problems with voiding -avoid nsaids, hold bp meds for now #urinary retention with h/o BPH s/p green light laser turp -see above #Htn now with relative hypotension -hold norvasc/lisinopril #H/o Gout SUBJECTIVE: feels better this am no sob, no chest pain no cough no fever sxs OBJECTIVE Vitals reviewed:stable without fever Exam: alert oriented, relaxed skin warm dry color ok resps not labored lungs clear BSs heart regular abd soft nondistended nontender, bowel sounds present limbs warm, no edema iv site ok Objective: Vital Signs Temp Pulse Resp BP Pulse Ox 36.9 C 88 15 124/87 H 96 01/16/17 08:00 01/16/17 08:00 01/16/17 08:00 01/16/17 08:00 01/16/17 08:00 Laboratory Results 01/15/17 04:57 01/16/17 04:15 01/15/17 01/16/17 01/17/17 06:59 06:59 06:59 Intake Total 500 2500 Output Total 600 2500 Balance -100 0 PT 13.0 SEC (12.0-15.0) 01/12/17 12:30 INR 0.99 (0.83-1.16) 01/12/17 12:30 ICD10 Worksheet Patient Problems: Problems Problem Status Onset Myelopathy Acute
[2017-01-16] MEDS: FLUTICASONE HFA 110 MCG MDI IH SCH ×2 (09:52→21:19)
[2017-01-16] MEDS ORDERED: IOPAMIDOL (ISOVUE 370) 100 ML BTL IV ONE (11:50)
--- NOTE | 2017-01-16 14:57 | SOAPPROG ---
SOAP Progress Note Assessment/Plan: Assessment: s/p C4-7 ACDF/I for severe stenosis, and myelopathy. Pt having significant post op pain and some dysphagia and has not been able to urinate yet. Plan: Cont pain management. I encouraged pt to take valium as needed. Cont PT and OT (shower in a.m with collar off) If no void, pt will need mccord and f/u appt with Dr. Lemus (pts urologist). 01/13/17 17:41 01/14/17 15:32 post op day 2, s/p C4-7 ACDF/I for cervical myelopathy and severe LUE radiculopathy. Pt had episode of chest pressure, SOB, dysphagia today. Had cardiac protocol w/u. Negative so far per hospitalist. Plan: cont close airway observation, telemetry, and pain control. 01/15/17 13:53 post op day 3, s/p C4-7 ACDF/I. Pain still problematic for pt. Will start decadron. Will increase neurontin. Bronchitis per hospitalist. Bladder retention. Will need mccord in next 2-3 hrs if unable to urinate and f/ u with Dr. Lemus. 01/16/17 14:54 post op day4, s/p C4-7 ACDF/I for severe stenosis and myelomalacia. Tachycardia and hypoxia work up negative for PE and DVT. Pt has mccord in place now. Pain improved per pt (likely due to decadron). Plan: airway observation, nebs. Will stay with this regimen of pain mgmt. If pt improves overall likely able to go home tomorrow. Subjective: Pt talking about VQ study. "Pain more manageable". Objective: Vital Signs Temp Pulse Resp BP Pulse Ox 36.9 C 96 16 133/78 H 93 01/16/17 11:33 01/16/17 11:45 01/16/17 11:45 01/16/17 11:33 01/16/17 11:45 Laboratory Results 01/15/17 04:57 01/16/17 04:15 01/15/17 01/16/17 01/17/17 05:59 05:59 05:59 Intake Total 500 2500 Output Total 600 2500 600 Balance -100 0 -600 PT 13.0 SEC (12.0-15.0) 01/12/17 12:30 INR 0.99 (0.83-1.16) 01/12/17 12:30 P.E. not performed as pt was in shower. ICD10 Worksheet Patient Problems: Problems Problem Status Onset Myelopathy Acute - ICD10 Problem Qualifiers (1) Myelopathy
[2017-01-16] MEDS: DIAZEPAM 5 MG TAB PO PRN (22:08)
[2017-01-17] MEDS: OXYCODONE/APAP 5/325 TAB PO PRN ×2 (02:10→06:01)
[2017-01-17] MEDS: IPRATROPIUM/ALBUTEROL 3 ML DEYVIAL IH SCH ×2 (05:48→12:41)
[2017-01-17 07:36] VITALS: RESP 18
[2017-01-17] MEDS: ROSUVASTATIN CALCIUM 10 MG TAB PO SCH (08:31)
[2017-01-17] MEDS: TAMSULOSIN HCL 0.4 MG CAP PO SCH (08:31)
[2017-01-17] MEDS: SENNOSIDES/DOCUSATE SODIUM TAB PO SCH (08:32)
[2017-01-17] MEDS: FENOFIBRATE 48 MG TAB PO SCH (08:32)
[2017-01-17] MEDS: GABAPENTIN 300 MG CAP PO SCH (08:32)
[2017-01-17] MEDS: morphINE SR 15 MG TAB PO SCH (08:33)
[2017-01-17] MEDS: ALLOPURINOL 300 MG TAB PO SCH (08:33)
[2017-01-17] MEDS: MONTELUKAST SODIUM 10 MG TAB PO SCH (08:33)
[2017-01-17] MEDS: FLUTICASONE HFA 110 MCG MDI IH SCH (08:57)
[2017-01-17] MEDS ORDERED: METHYLNALTREXONE BROMIDE 12 MG/0.6 ML INJ SC ONE (09:51)
--- NOTE | 2017-01-17 09:55 | HOSPPROG ---
Hospitalist Progress Note Assessment/Plan: DIAGNOSES: 66 y/o male pod #3 cervical fusion #resolved chest pain with negative troponin; diff diagnosis includes bronchitis and atelectasis, PE; no sign of cardiac issues at present -cont nebs -CT with no sign of PE or pneumonia, other cause of low O2 and high HRs #NIYAH (baseline creat 1.4) -multifactorial due to urinary retention/hypotension/nsaid use -avoid nsaids, hold bp meds for now #urinary retention with h/o BPH s/p green light laser turp -see above #Htn -holding lisinopril due to renal dz #H/o Gout Will treat his consitpation with methylnaltrexone and laxative From IM standpoint the tachycardia appears benign and no evidence of concerning underlying issues. Continue therapies, treat constipation; if he is ambulating safely he could be DC'd SUBJECTIVE: had rough night between being too cold and some neck pain when he tried to reach blanket at foot of bed better this am no sob fairly constipated OBJECTIVE Vitals reviewed: still intermittent mild tachycardia but overall vitals stable otherwise Exam: alert oriented, relaxed skin warm dry color ok resps not labored lungs clear BSs heart regular abd soft nondistended nontender, bowel sounds present limbs warm, no edema iv site ok Objective: Vital Signs Temp Pulse Resp BP Pulse Ox 36.7 C 96 18 124/84 H 93 01/17/17 07:33 01/17/17 07:33 01/17/17 07:33 01/17/17 07:33 01/17/17 07:33 Laboratory Results 01/15/17 04:57 01/16/17 04:15 01/16/17 01/17/17 01/18/17 06:59 06:59 06:59 Intake Total 2500 2200 Output Total 2500 2950 Balance 0 -750 PT 13.0 SEC (12.0-15.0) 01/12/17 12:30 INR 0.99 (0.83-1.16) 01/12/17 12:30 ICD10 Worksheet Patient Problems: Problems Problem Status Onset Myelopathy Acute
[2017-01-17 12:15] VITALS: BP 147/87; TEMP 97.9
--- NOTE | 2017-01-17 13:50 | SOAPPROG ---
SOAP Progress Note Assessment/Plan: Assessment: s/p C4-7 ACDF/I for severe stenosis, and myelopathy. Pt having significant post op pain and some dysphagia and has not been able to urinate yet. Plan: Cont pain management. I encouraged pt to take valium as needed. Cont PT and OT (shower in a.m with collar off) If no void, pt will need mccord and f/u appt with Dr. Lemus (pts urologist). 01/13/17 17:41 01/14/17 15:32 post op day 2, s/p C4-7 ACDF/I for cervical myelopathy and severe LUE radiculopathy. Pt had episode of chest pressure, SOB, dysphagia today. Had cardiac protocol w/u. Negative so far per hospitalist. Plan: cont close airway observation, telemetry, and pain control. 01/15/17 13:53 post op day 3, s/p C4-7 ACDF/I. Pain still problematic for pt. Will start decadron. Will increase neurontin. Bronchitis per hospitalist. Bladder retention. Will need mccord in next 2-3 hrs if unable to urinate and f/ u with Dr. Lemus. 01/16/17 14:54 post op day4, s/p C4-7 ACDF/I for severe stenosis and myelomalacia. Tachycardia and hypoxia work up negative for PE and DVT. Pt has mccord in place now. Pain improved per pt (likely due to decadron). Plan: airway observation, nebs. Will stay with this regimen of pain mgmt. If pt improves overall likely able to go home tomorrow. 01/17/17 13:47 post op day 5, S/P C4-7 ACDFI for severe stenosis and myelomalacia. Pt overall much improved. Pain controlled. Cardiac and pulmonary work up negative. Mccord in place for urinary retention. Pt ready for discharge. Subjective: Pt states his pain is a 4 or 5. Arms hurt less. No SOB or chest pain. Objective: Vital Signs Temp Pulse Resp BP Pulse Ox 36.6 C 90 18 147/87 H 91 L 01/17/17 12:14 01/17/17 12:14 01/17/17 07:33 01/17/17 12:14 01/17/17 12:14 Laboratory Results 01/15/17 04:57 01/16/17 04:15 01/16/17 01/17/17 01/18/17 05:59 05:59 05:59 Intake Total 2500 2200 Output Total 2500 2950 Balance 0 -750 PT 13.0 SEC (12.0-15.0) 01/12/17 12:30 INR 0.99 (0.83-1.16) 01/12/17 12:30 No Rommel's. Wound clean and dry. No sign of infection. Swelling diminished. BUE motor 5/5. ICD10 Worksheet Patient Problems: Problems Problem Status Onset Myelopathy Acute - ICD10 Problem Qualifiers (1) Myelopathy
[2017-01-17 15:27] VITALS: PULSE 88; O2SAT 92
--- NOTE | 2017-01-17 19:51 | GDS ---
[f rep st] DISCHARGE SUMMARY HOSPITAL COURSE: The patient is a very pleasant 66-year-old gentleman who had about a 3-4 week hist ory of severe neck pain and left upper extremity pain, tingling, numbness, loss of balance, loss of dexterity. An MRI showed myelomalacia within the spinal cord at C4-5. 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 He was recommended to undergo surgery. On t he day of admission, he underwent a general anesthetic. He then underwent, after neural monitoring was set up, a C4-C7 anterior diskectomy, decompression, fusion with instrumentation. Findings at th e time of surgery included profound spinal stenosis at C4-5, mild at C5-6, and moderate at C6-7. Th ere were no neurologic changes via neuro monitoring during the surgery and none postoperatively. Po stoperatively, the patient had a few difficulties. Number 1 was pain control. Ultimately MS Contin 15 mg 1 p.o. b.i.d., in addition to Percocet, Valium, and Neurontin 300 mg 1 p.o. t.i.d. was a reas onable regimen for him to have good pain control. Also on postoperative day 2, the patient experien edwige a heaviness in his chest, slight difficulty with breathing, and diaphoresis, and tachycardia. T hospitalist was consulted. Initially the workup was a cardiac workup with no changes in his EKG and troponins were normal. Patient also had bilateral lower extremity ultrasounds looking for DVTs of which these were negative as well. Another episode prompted a V/Q scan and a CT scan with contra st of the chest. The scans did not show any evidence of pulmonary emboli. The patient was kept on telemetry and overall did well, but the tachycardia persisted slightly. The other issue was difficu lty with urination. He has had a [employer] laser surgery in the past, and sees Dr. Lemus. After a couple of tries of I and O catheterizations, ultimately the patient did require a Ignacio catheter. Nurses instructed him in the care of at it as he has had 1 at home before. The patient has seen Physical Therapy and Occupational Therapy and became independent in ambulation and activities of daily living. Speech Pathology also saw him and initially recommended a dysphagia 2 diet. His dysphagia improved significantly over the course of the hospital stay. The patient is being discharged to home in satisfactory condition. DISCHARGE INSTRUCTIONS: The following instructions pertain to his postoperative course. He needs t o avoid anti-inflammatories. He also needs to call Dr. Lemus's office tomorrow to schedule a Ignacio removal with either the doctor or the PA for approximately 3-4 days from now. He needs to do a diego ly dry dressing change to his cervical wound and to shower daily with the bandage and the soft colla r off. He needs to walk as much as possible, but no bending, lifting, twisting. He has an appointm ent with my office and was given prescriptions in advance. The patient knows to call my office imme diately or go to the nearest emergency room or call if he were to be concerned about any katie alvarado postoperative complications and he concurred. Overall, he is doing well and is being discharged home in satisfactory condition. /[id number]/MODL
== END 2017-01-17 16:20 | disposition home or self-care (01) | DRG 472 ==
LOC: F3E 11:50 → F3N 12:39
PROVIDERS: ADMIT Orthopaedic Surgery Orthopaedic Surgery of the Spine; ATTEND Orthopaedic Surgery Orthopaedic Surgery of the Spine
DX: M48.02 Spinal stenosis, cervical region (principal); G95.89 Other specified diseases of spinal cord; M50.00 Cervical disc disorder with myelopathy, unspecified cervical region; M50.322 Other cervical disc degeneration at C5-C6 level; M50.321 Other cervical disc degeneration at C4-C5 level; M50.323 Other cervical disc degeneration at C6-C7 level; M50.123 Cervical disc disorder at C6-C7 level with radiculopathy; E78.00 Pure hypercholesterolemia, unspecified; I10 Essential (primary) hypertension; E88.81 Metabolic syndrome and other insulin resistance; G47.30 Sleep apnea, unspecified; M10.9 Gout, unspecified; J20.9 Acute bronchitis, unspecified; J42 Unspecified chronic bronchitis; R33.9 Retention of urine, unspecified
CPT/HCPCS: 92526-GN; 92610-GN; 97161-GP; 97165-GO; 97530-GO; 97532-GO; 97535-GO; C1713; G8978-GP-CI; G8979-GP-CI; G8980-GP-CI; G8987-GO-CK; G8988-GO-CI; G8996-GN-CI; G8997-GN-CH; J0330; J1100; J1170; J2212; J2250; J2405; J2704; J3010; J3370; Q9967

== ENCOUNTER → 2017-02-15 | Outpatient (CLI) | payer OTHER, MEDICARE | LOC: FIMAGING 11:22 | PROVIDERS: ATTEND Orthopaedic Surgery Orthopaedic Surgery of the Spine | DX: Z47.89 Encounter for other orthopedic aftercare (principal); Z98.1 Arthrodesis status ==

== ENCOUNTER → 2017-04-12 | Outpatient (CLI) | payer OTHER, MEDICARE | LOC: FIMAGING 08:21 | PROVIDERS: ATTEND Orthopaedic Surgery Orthopaedic Surgery of the Spine | DX: Z09 Encounter for follow-up examination after completed treatment for conditions other than malignant neoplasm (principal); Z98.1 Arthrodesis status ==

== ENCOUNTER → 2017-07-19 | Outpatient (CLI) | payer OTHER, MEDICARE | LOC: FLAB 10:03 | PROVIDERS: ATTEND Orthopaedic Surgery Orthopaedic Surgery of the Spine | DX: Z09 Encounter for follow-up examination after completed treatment for conditions other than malignant neoplasm (principal); Z98.1 Arthrodesis status ==

== ENCOUNTER → 2017-11-10 | Outpatient (CLI) | payer OTHER, MEDICARE | LOC: FIMAGING 10:00 | PROVIDERS: ATTEND Orthopaedic Surgery Orthopaedic Surgery of the Spine | DX: Z09 Encounter for follow-up examination after completed treatment for conditions other than malignant neoplasm (principal); Z98.1 Arthrodesis status ==